=== PATIENT | female | born 2000 | race African-American/Black ===

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

== ENCOUNTER 2021-11-28 22:06 | Emergency (ER) | payer OTHER, SELFPAY ==
[2021-11-28] MEDS ORDERED: Acetaminophen 500 MG TAB ONE (22:30)
[2021-11-28] MEDS ORDERED: Ketorolac Tromethamine 30 MG/ML VIAL ONE (22:30)
== END 2021-11-28 22:54 | disposition home or self-care (01) ==
LOC: ERS 22:06
DX: M79.651 Pain in right thigh (principal); W19.XXXA Unspecified fall, initial encounter
CPT/HCPCS: 96372; 99283; J1885